=== PATIENT | male | born 1970 | race Caucasian/White ===

== ENCOUNTER 2018-12-01 13:35 | Emergency (ER) | payer OTHER ==
[2018-12-01 13:50] VITALS: BP 142/101
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
--- NOTE | 2018-12-02 12:13 | CR ---
Right hand: Four views of the right hand were obtained. Comparison: No previous study. Joint spaces are maintained. Soft tissue injury appears to be present within the distal third finger. No acute fracture, dislocation or other bony abnormality is seen. Impression: 1. Soft tissue injury appears to be present within the distal third finger. 2. No acute bony abnormality is appreciated on right hand exam. Diagnostic code #2
== END 2018-12-01 14:45 | disposition home or self-care (01) ==
LOC: SUPCPDRO 13:35 → JD.ED 13:35
DX: S60.221A Contusion of right hand, initial encounter (principal); F17.210 Nicotine dependence, cigarettes, uncomplicated; Y04.2XXA Assault by strike against or bumped into by another person, initial encounter
CPT/HCPCS: 73130-26-RT; 73130-RT; 99282; 99283-25

== ENCOUNTER 2023-09-05 03:14 | Emergency (ER) | payer OTHER, BC ==
[2023-09-05 05:01] VITALS: BP 131/69; PULSE 76
== END 2023-09-05 05:00 | disposition home or self-care (01) ==
LOC: JD.ED 03:14
DX: S80.02XA Contusion of left knee, initial encounter (principal); E78.00 Pure hypercholesterolemia, unspecified; I10 Essential (primary) hypertension; F17.210 Nicotine dependence, cigarettes, uncomplicated; Z79.82 Long term (current) use of aspirin; Z79.899 Other long term (current) drug therapy; Z90.49 Acquired absence of other specified parts of digestive tract; X58.XXXA Exposure to other specified factors, initial encounter
CPT/HCPCS: 73564-26-LT; 73564-LT; 99282; 99283

== ENCOUNTER 2023-11-15 07:30 | Day surgery (SDC) | payer OTHER, BC ==
[~2023-11-15 07:30] MED LIST: Lidocaine 1% 4 ML ONE; Midazolam 1 MG/ML 2 ML SDV ONE; Propofol 200 MG/20 ML SDV ONE; Sodium Chloride 0.9% 10 ML Syringe FLUSH PRN; Sodium Chloride 0.9% 10 ML Syringe FLUSH SCH; ceFAZolin 2 GM Vial ONE; fentaNYL 100 MCG/2 ML SDV ONE
[2023-11-15] MEDS: Lactated Ringers 1,000 ML IV SCH (07:30)
[2023-11-15] MEDS: Albuterol 0.083% 2.5 MG/3 ML Neb Soln NEB SCH (08:52)
[2023-11-15] MEDS ORDERED: fentaNYL 100 MCG/2 ML SDV ONE (09:57)
[2023-11-15] MEDS: EPINEPHrine 1 MG/ML SDV ONE ×2 (10:07)
[2023-11-15] MEDS ORDERED: Ondansetron 4 MG/2 ML SDV ONE (10:15)
[2023-11-15] MEDS ORDERED: Ketorolac 30 MG/ML SDV ONE (10:15)
[2023-11-15] MEDS: Bupivacaine 0.25% 10 ML SDV ONE (10:18)
[2023-11-15] MEDS ORDERED: HYDROmorphone 0.5 MG/0.5 ML Syringe IVPUSH PRN (10:33)
[2023-11-15] MEDS ORDERED: fentaNYL 100 MCG/2 ML SDV IVPUSH PRN (10:33)
[2023-11-15] MEDS ORDERED: Ondansetron 4 MG/2 ML SDV IVPUSH PRN (10:33)
[2023-11-15] MEDS ORDERED: Acetaminophen/HYDROcodone 325-5 MG Tab PO PRN (10:47)
[2023-11-15 12:18] VITALS: BP 148/88; PULSE 70
== END 2023-11-15 12:15 | disposition home or self-care (01) ==
LOC: JD.SDS 07:30
PROVIDERS: ATTEND Orthopaedic Surgery
DX: M22.42 Chondromalacia patellae, left knee (principal); S83.282A Other tear of lateral meniscus, current injury, left knee, initial encounter; F33.9 Major depressive disorder, recurrent, unspecified; I10 Essential (primary) hypertension; E78.2 Mixed hyperlipidemia; K21.9 Gastro-esophageal reflux disease without esophagitis; F17.210 Nicotine dependence, cigarettes, uncomplicated; Z79.899 Other long term (current) drug therapy; X58.XXXA Exposure to other specified factors, initial encounter
CPT/HCPCS: 29875; J0171; J0690; J1885; J2250; J2405; J2704; J3010; J3490; J7120; 01400; J7620-GY

== ENCOUNTER 2024-07-17 08:23 | Day surgery (SDC) | payer OTHER, BC ==
[~2024-07-17 08:23] MED LIST changes: +Dexamethasone 4 MG/ML 5 ML MDV ONE; +Ketorolac 30 MG/ML SDV ONE; +Ondansetron 4 MG/2 ML SDV ONE; +Phenylephrine 1% 10 MG/ML SDV ONE; +Rocuronium 50 MG/5 ML Vial ONE; +Ropivacaine 0.5% 5 MG/ML 30 ML SDV ONE; +dexmedeTOMIDine HCl 200 MCG/2 ML SDV ONE
[2024-07-17] MEDS: Lactated Ringers 1,000 ML IV SCH (08:50)
[2024-07-17] MEDS ORDERED: Acetaminophen/HYDROcodone 325-5 MG Tab PO PRN (09:13)
[2024-07-17] MEDS ORDERED: fentaNYL 100 MCG/2 ML SDV ONE (10:06)
[2024-07-17] MEDS ORDERED: ePHEDrine 50 MG/ML SDV ONE (10:37)
[2024-07-17] MEDS: EPINEPHrine 1 MG/ML SDV ONE (10:49)
[2024-07-17] MEDS ORDERED: Sugammadex Sodium 200 MG/2 ML VIAL IV ONE (10:57)
[2024-07-17] MEDS ORDERED: HYDROmorphone 0.5 MG/0.5 ML Syringe IVPUSH PRN (10:59)
[2024-07-17] MEDS ORDERED: Ondansetron 4 MG/2 ML SDV IVPUSH PRN (10:59)
[2024-07-17] MEDS ORDERED: fentaNYL 100 MCG/2 ML SDV IVPUSH PRN (10:59)
[2024-07-17 15:33] VITALS: BP 123/82; PULSE 60
== END 2024-07-17 13:35 | disposition home or self-care (01) ==
LOC: JD.SDS 08:23
PROVIDERS: ATTEND Orthopaedic Surgery
DX: S43.431A Superior glenoid labrum lesion of right shoulder, initial encounter (principal); M75.21 Bicipital tendinitis, right shoulder; M94.211 Chondromalacia, right shoulder; E78.00 Pure hypercholesterolemia, unspecified; I10 Essential (primary) hypertension; F17.210 Nicotine dependence, cigarettes, uncomplicated; Z79.899 Other long term (current) drug therapy
CPT/HCPCS: 29823; 64415; J0171; J0690; J1100; J1885; J2250; J2405; J2704; J2795; J3010; J3490; J7120; 01630; J2371